=== PATIENT | male | born 1960 | race Caucasian/White ===

== ENCOUNTER 2022-08-24 07:53 | Inpatient (IN) | payer MEDICAID ==
[2022-08-23 09:44] LABS: BASOPHILS % (AUTO) 0.7 % (0-1); EOSINOPHILS # (AUTO) 0.2 X10'3 (0-0.9); EOSINOPHILS % (AUTO) 3.6 % (0-6); LYMPHOCYTES # (AUTO) 1.3 X10'3 (1.1-4.8); LYMPHOCYTES % (AUTO) 22.7 % (21-51); MEAN CORPUSCULAR HEMOGLOBIN 31.7 PG (27.0-31.0); MEAN CORPUSCULAR HGB CONC 34.7 g/dL (33.0-36.5); MEAN CORPUSCULAR VOLUME 91.4 FL (78-98); MEAN PLATELET VOLUME 9.1 FL (7.4-10.4); MONOCYTES # (AUTO) 0.5 X10'3 (0-0.9); MONOCYTES % (AUTO) 9.3 % (2-12); NEUTROPHILS # (AUTO) 3.5 X10'3 (1.8-7.7); NEUTROPHILS % (AUTO) 63.7 % (42-75); PRE OP HEMATOCRIT 43.9 % (42.0-52.0); PRE OP HEMOGLOBIN 15.2 g/dL (14.0-17.9); PRE OP PLATELET COUNT 105 X10'3 (140-440); RED BLOOD COUNT 4.81 X10'6 (4.70-6.10); RED CELL DISTRIBUTION WIDTH 13.2 % (11.5-14.5)
[2022-08-23 09:57] LABS: ALBUMIN 3.5 G/DL (3.4-5.0); ALBUMIN/GLOBULIN RATIO 0.9 (1.1-1.5); ALKALINE PHOSPHATASE 90 IU/L (46-116); BLOOD UREA NITROGEN 17 MG/DL (7-18); BUN/CREATININE RATIO 17.9 (10.0-20.0); CALCIUM 8.7 MG/DL (8.5-10.1); CHLORIDE 108 MMOL/L (99-107); CREATININE 0.95 MG/DL (0.60-1.10); PRE OP ALT 70 U/L (30-65); PRE OP ANION GAP 7 (8-16); PRE OP AST 58 U/L (10-37); PRE OP BILIRUB, TOTAL 0.5 MG/DL (0.0-1.0); PRE OP GLUCOSE 114 MG/DL (70-104); PRE OP SODIUM 143 MMOL/L (135-145); TOTAL PROTEIN 7.6 G/DL (6.4-8.2); eGFR 81 ML/MIN
[~2022-08-24] VITALS: Ht 175.3 cm; Wt 130.0 kg
[2022-08-24] VITALS (22 sets, daily range): BP systolic 110–143; BP diastolic 72–85
[~2022-08-24 07:53] MED LIST: ACET-812 PO; AMLO5TAB PO; ATOR40TA72 PO; CARB200T40 PO; GABA300C PO; HYDR-3973 PO; LISI1TAB51 PO; acetaminophen 325mg tablet PO ONE; cefazolin 2gm/D5W 100mL 100 ML IV ONE; celeCOXIB 100mg capsule PO ONE; famotidine 20mg tablet PO ONE; gabapentin 300mg capsule PO ONE; metoclopramide 5 mg/ml inj IV ONE; oxyCODONE SR 10mg (sust. release) tab -2 tabs (20mg) PO ONE; ringers solution, lacted 1,000 ML IV SCH; tranexamic acid inj. 1,000 MG in normal saline IV soln 100ML IV ONE; vancomycin 1,500 MG in NS 300ml IV soln IV ONE
--- NOTE | 2022-08-24 09:41 | NUR ---
[facility] INTACT PEDAL PULSES MARKED, ORTHO VIDEO VIEWED, NO OINTMENT ORDERED. ON Q EDUCATION GIVEN
[2022-08-24] MEDS ORDERED: oxyCODONE IR 5mg (immed. release) tablet PO PRN (09:50)
[2022-08-24] MEDS ORDERED: TRANEXAMIC ACID IV ONE (09:50)
[2022-08-24] MEDS ORDERED: magnesium hydroxide 30ml (MOM) UD suspension PO PRN (09:50)
[2022-08-24] MEDS ORDERED: diphenhydrAMINE 25mg capsule PO PRN ×2 (09:50)
[2022-08-24] MEDS ORDERED: acetaminophen 325mg tablet PO PRN (09:50)
[2022-08-24] MEDS ORDERED: ondansetron/PF 4mg/2ml inj IV PRN ×2 (09:50→15:20)
[2022-08-24] MEDS ORDERED: HYDROmorphone 1 mg/ml syringe IV PRN (09:50)
[2022-08-24] MEDS ORDERED: bisacodyl 10mg suppository rectal RC PRN (09:50)
[2022-08-24] MEDS ORDERED: NORMAL SALINE IV ONE (09:50)
[2022-08-24] MEDS ORDERED: naloxone 0.4 mg/ml inj IV PRN (09:50)
[2022-08-24] MEDS ORDERED: vancomycin 1,000mg inj ONE (12:10)
[2022-08-24] MEDS ORDERED: cloNIDine hcl/PF 100mcg/ml inj ONE (12:10)
[2022-08-24] MEDS ORDERED: epiNEPHrine 1 mg/ml inj ONE (12:10)
[2022-08-24] MEDS ORDERED: ketorolac trometh. 30mg/ml inj. ONE (12:10)
[2022-08-24] MEDS ORDERED: MIDAZolam 1mg/ml 10ml vial ONE (12:40)
[2022-08-24] MEDS ORDERED: ROPIVAcaine 0.5% (5mg/ml) 30ml vial ONE ×4 (12:43→13:25)
[2022-08-24] MEDS ORDERED: propofol inj 20 ML IV ONE (12:50)
[2022-08-24] MEDS ORDERED: ROPIVAcaine 0.5% (5mg/ml) 30ml vial IJ ONE (13:10)
[2022-08-24] MEDS ORDERED: fentaNYL/PF 50MCG/1 ML 2ML syringe ONE (13:49)
[2022-08-24] MEDS: oxyCODONE IR 5mg (immed. release) tablet PO PRN (14:49)
[2022-08-24] MEDS ORDERED: HYDROmorphone inj. 0.5 MG/0.5 ML DISP.SYRIN IV STA (15:19)
[2022-08-24] MEDS ORDERED: ringers solution, lacted 1,000 ML IV SCH (15:20)
[2022-08-24] MEDS ORDERED: ROPIVAcaine 0.2%/PF PUMP/bolus 545 ML ADDCANAL SCH (15:20)
[2022-08-24] MEDS ORDERED: morphine 4 MG/ML inj SYRINge IV PRN (15:20)
[2022-08-24] MEDS ORDERED: hydrALAZINE 20mg/ml inj. IV PRN (15:20)
[2022-08-24] MEDS ORDERED: ROPIVAcaine 0.2% (10 MG/5 ML) BOLUS INJECTION ADDCANAL PRN (15:20)
[2022-08-24] MEDS ORDERED: morphine 2 MG/ML inj. syringe IV PRN (15:20)
[2022-08-24] MEDS ORDERED: HYDROmorphone/PF 0.2 MG/ML SYRINGE IV PRN ×2 (15:20)
[2022-08-24] MEDS ORDERED: labetalol 20mg/4ml (5mg/ml) syringe IV PRN (15:20)
[2022-08-24] MEDS: HYDROmorphone inj. 0.5 MG/0.5 ML DISP.SYRIN IV PRN ×2 (15:21→20:14)
[2022-08-24] MEDS ORDERED: ceFAZolin/D5W- 1GM premix 50 ML IV SCH ×2 (16:00→22:54)
--- NOTE | 2022-08-24 16:10 | NUR ---
PATIENT MEETS RECOVERY CRITERIA. REPORT CALLED TO YUNIOR. PATIENT TRANSFERRED WITH ALL BELONGINGS TO [id number]. STATES PAIN IS MANAGEABLE.
[2022-08-24] MEDS: potassium cl 20mEq in 1/2 NS 1,000 ML IV SCH (17:50)
[2022-08-24] MEDS: TRANEXAMIC ACID IV ONE ×2 (18:33→18:40)
[2022-08-24] MEDS: NORMAL SALINE IV ONE ×2 (18:33→18:40)
[2022-08-24] MEDS ORDERED: vancomycin inj 1,750 MG in normal saline 500ml IV soln 350 ML IV ONE (20:00)
[2022-08-24] MEDS ORDERED: carBAMazepine Ext. Release 200 MG TAB.ER.12H PO SCH (20:00)
[2022-08-24] MEDS: HYDROchlorothiazide 12.5mg capsule PO SCH (20:14)
[2022-08-24] MEDS: amLODIPine 5mg tablet PO SCH (20:15)
[2022-08-24] MEDS: ascorbic acid 500mg tablet PO SCH (20:15)
[2022-08-24] MEDS: lisinopril 20mg tablet PO SCH (20:15)
[2022-08-24] MEDS: gabapentin 300mg capsule PO SCH (20:17)
[2022-08-24] MEDS ORDERED: sennosides 8.6mg tablet PO SCH (21:00)
[2022-08-25] MEDS: potassium cl 20mEq in 1/2 NS 1,000 ML IV SCH (01:50)
[2022-08-25 02:00] VITALS: BP 111/73
[2022-08-25] MEDS: oxyCODONE IR 5mg (immed. release) tablet PO PRN ×2 (04:45→08:27)
[2022-08-25 06:00] VITALS: BP_SYST 130; BP_SYST 137; BP_DIAS 85; BP_DIAS 86
[2022-08-25 06:25] LABS: BASOPHILS % (AUTO) 0.4 % (0-1); EOSINOPHILS # (AUTO) 0.1 X10'3 (0-0.9); EOSINOPHILS % (AUTO) 0.7 % (0-6); HEMATOCRIT 38.3 % (42.0-52.0); HEMOGLOBIN 13.5 g/dl (14.0-17.9); LYMPHOCYTES % (AUTO) 13.3 % (21-51); MEAN CORPUSCULAR HEMOGLOBIN 31.9 PG (27.0-31.0); MEAN CORPUSCULAR HGB CONC 35.3 g/dL (33.0-36.5); MEAN CORPUSCULAR VOLUME 90.4 FL (78-98); MEAN PLATELET VOLUME 9.1 FL (7.4-10.4); MONOCYTES # (AUTO) 0.6 X10'3 (0-0.9); MONOCYTES % (AUTO) 7.6 % (2-12); NEUTROPHILS # (AUTO) 5.8 X10'3 (1.8-7.7); PLATELET COUNT 103 X10'3 (140-440); RED BLOOD COUNT 4.23 X10'6 (4.70-6.10); RED CELL DISTRIBUTION WIDTH 12.6 % (11.5-14.5); WHITE BLOOD COUNT 7.4 X10'3 (4.5-11.0)
[2022-08-25 06:42] LABS: ANION GAP 9 (8-16); CHLORIDE 104 MMOL/L (99-107); POTASSIUM 3.9 MMOL/L (3.5-5.1); SODIUM 139 MMOL/L (135-145); TOTAL CARBON DIOXIDE 25.8 MMOL/L (24-32)
[2022-08-25] MEDS ORDERED: atorvastatin 20mg tablet PO SCH (08:00)
[2022-08-25] MEDS ORDERED: multivitamins, therapeutics tablet PO SCH (08:00)
[2022-08-25] MEDS: HYDROchlorothiazide 12.5mg capsule PO SCH (08:21)
[2022-08-25] MEDS: lisinopril 20mg tablet PO SCH (08:23)
[2022-08-25] MEDS: gabapentin 300mg capsule PO SCH (08:24)
[2022-08-25] MEDS: amLODIPine 5mg tablet PO SCH (08:25)
[2022-08-25] MEDS: ascorbic acid 500mg tablet PO SCH (08:25)
[2022-08-25] MEDS ORDERED: aspirin 325mg tablet PO SCH (08:30)
[2022-08-25 10:00] VITALS: BP 137/86
--- NOTE | 2022-08-25 11:45 | NUR ---
Joint surgery consult: Pt s/p L knee surgery this admit per EMR. Pt/SO seen by PARAS for written/verbal high protein diet ed w/ RD contact information provided. PARAS encouraged pt/SO to contact dietitian's office if further nutrition questions/concerns. Addendum: 08/25/22 at [address] Amended: Links added.
[2022-08-25] MEDS ORDERED: celeCOXIB 100mg capsule PO SCH (20:00)
== END 2022-08-25 10:59 | disposition home or self-care (01) | DRG 326 ==
LOC: PAS IN 08:15 → ORTHO 4S 14:17 → PAS IN 14:21 → ORTHO 4S 16:15
PROVIDERS: ADMIT Orthopaedic Surgery; ATTEND Orthopaedic Surgery
PROC: 3E0T3BZ Introduction of Anesthetic Agent into Peripheral Nerves and Plexi, Percutaneous Approach (ICD-10-PCS; 2022-08-24)
PROC: 3E0T33Z Introduction of Anti-inflammatory into Peripheral Nerves and Plexi, Percutaneous Approach (ICD-10-PCS; 2022-08-24)
PROC: 0SRD0J9 Replacement of Left Knee Joint with Synthetic Substitute, Cemented, Open Approach (ICD-10-PCS; principal; 2022-08-24 12:21)
DX: M17.12 Unilateral primary osteoarthritis, left knee (principal); Z79.899 Other long term (current) drug therapy
CPT/HCPCS: 36415; 71045; 73560; 80051; 80053; 82948; 85025; 86885; 86900; 86901; 87081; 97110; 97116; 97161; 97530; A4215; A4615; A6449; A7000; C1713; C1776; G0378; J0171; J0690; J0735; J1170; J1885; J2250; J2704; J2765; J2795; J3010; J3370; J3480; J3490; J7040; J7120